=== PATIENT | female | born 1995 | race Caucasian/White ===

== ENCOUNTER 2019-05-21 23:59 | Emergency (ER) | payer OTHER ==
[2019-05-22 00:12] VITALS: BP 135/97; PULSE 98; TEMP 98.2; BMI 24.4
--- NOTE | 2019-05-22 01:22 | PDOC ---
Documentation entered by Russell Gimenez SCRIBE, acting as scribe for Yolande Jain MD. Yolande Jain MD: This documentation has been prepared by the sangibePernell Daniel, SCRIBE, under my direction and personally reviewed by me in its entirety. I confirm that the documentation accurately reflects all work, treatment, procedures, and medical decision making performed by me. History of Present Illness - General Chief Complaint: Vaginal Bleeding Stated Complaint: VAGINAL BLEEDING Time Seen by Provider: 05/22/19 01:02 History Source: Patient Exam Limitations: No Limitations - History of Present Illness Initial Comments: 05/22/19 01:13 The patient is a 24 year old female with no past medical history here today for evaluation of vaginal bleeding. The patient reports that she is 9 weeks (LMP: 02/25/19) and noticed some vaginal bleeding today about 1 hour prior to arrival. Patient denies any other symptoms at this time. Patient notes seeing her OB last week. Patient denies headache, lightheadedness. Denies fever, chills. Denies chest pain, shortness of breath. Denies nausea, vomiting, diarrhea, abdominal pain. Surgical history: none OB: [facility] Past History - Past Medical History Home Medications: Ambulatory Orders NK [No Known Home Medication] 05/22/19 COPD: No - Psycho Social/Smoking Cessation Hx Smoking History: Never smoked Have you smoked in the past 12 months: No Information on smoking cessation initiated: No Hx Alcohol Use: No Drug/Substance Use Hx: No Review of Systems - Review of Systems Able to Perform ROS?: Yes Comments:: 05/22/19 01:13 CONSTITUTIONAL: Absent: fever, chills, diaphoresis, generalized weakness, malaise, loss of appetite HEENT: Absent: rhinorrhea, nasal congestion, throat pain, throat swelling, difficulty swallowing, mouth swelling, ear pain, eye pain, visual Changes CARDIOVASCULAR: Absent: chest pain, syncope, palpitations, irregular heart rate, lightheadedness , peripheral edema RESPIRATORY: Absent: cough, shortness of breath, dyspnea with exertion, orthopnea, wheezing, stridor, hemoptysis GASTROINTESTINAL: Absent: abdominal pain, abdominal distension, nausea, vomiting, diarrhea, constipation, melena, hematochezia GENITOURINARY: +vaginal bleeding. Absent: dysuria, frequency, urgency, hesitancy, hematuria, flank pain, genital pain MUSCULOSKELETAL: Absent: myalgia, arthralgia, joint swelling SKIN: Absent: rash, itching, pallor HEMATOLOGIC/IMMUNOLOGIC: Absent: easy bleeding, easy bruising, lymphadenopathy, frequent infections ENDOCRINE: Absent: unexplained weight gain, unexplained weight loss, heat intolerance, cold intolerance NEUROLOGIC: Absent: headache, focal weakness or paresthesias, dizziness, unsteady gait, seizure, mental status changes, bladder or bowel incontinence PSYCHIATRIC: Absent: anxiety, depression, suicidal or homicidal ideation, hallucinations. *Physical Exam - Vital Signs Last Vital Signs Temp Pulse Resp BP Pulse Ox 98.2 F 98 H 19 135/97 100 05/22/19 00:06 05/22/19 00:06 05/22/19 00:06 05/22/19 00:06 05/22/19 00:06 - Physical Exam 05/22/19 01:13 GENERAL: Well developed, well nourished. Awake and alert. No acute distress. HEENT: Normocephalic, atraumatic. PERRLA, EOMI. No conjunctival pallor. Sclera are non- icteric. Moist mucous membranes. Oropharynx is clear. NECK: Supple. Full ROM. No JVD. Carotid pulses 2+ and symmetric, without bruits. No thyromegaly. No lymphadenopathy. CARDIOVASCULAR: Regular rate and rhythm. No murmurs, rubs, or gallops. Distal pulses are 2+ and symmetric. PULMONARY: No evidence of respiratory distress. Lungs clear to auscultation bilaterally. No wheezing, rales or rhonchi. ABDOMINAL: Soft. Non-tender. Non-distended. No rebound or guarding. No organomegaly. Normoactive bowel sounds. MUSCULOSKELETAL Normal range of motion at all joints. No bony deformities or tenderness. No CVA tenderness. EXTREMITIES: No cyanosis. No clubbing. No edema. No calf tenderness. SKIN: Warm and dry. Normal capillary refill. No rashes. No jaundice. NEUROLOGICAL: Alert, awake, appropriate. Cranial nerves 2-12 intact. No deficits to light touch and temperature in face, upper extremities and lower extremities. No motor deficits in the face, upper extremities and lower extremities. Normoreflexic in the upper and lower extremities. Normal speech. Toes are down- going bilaterally. Gait is normal without ataxia. PSYCHIATRIC: Cooperative. Good eye contact. Appropriate mood and affect. ED Treatment Course - LABORATORY CBC & Chemistry Diagram: 05/22/19 01:51 Medical Decision Making - Medical Decision Making 05/22/19 01:21 imp threatened ab/early bhcg,type and screen, US 05/22/19 01:41 05/22/19 01:55 Ultrasound shows a live IUP estimated age 10 weeks 5 days without definite abnormalities, heart tones 169 bpm, no subchorionic bleed there is no sign of torsion good flow to both ovaries impression threatened AB patient follow-up with her INSET CUTTER 05/22/19 02:45 RH positive Discharge - Discharge Information Problems reviewed: Yes Clinical Impression/Diagnosis: Threatened Condition: Stable Disposition: HOME - Admission No - Follow up/Referral - Patient Discharge Instructions Patient Printed Discharge Instructions: DI for Threatened Additional Instructions: please follow up with your cylinder machine operator pulp drier - Post Discharge Activity
[2019-05-22 01:58] LABS: BASO % 0.6 % (0-2.0); EOS % 2.5 % (0-4.5); HEMATOCRIT 36.5 % (32.4-45.2); HEMOGLOBIN 12.7 GM/dL (10.7-15.3); LYMPH % 32.3 % (8-40); MCH 31.8 pg (25.7-33.7); MCHC 34.8 g/dl (32.0-36.0); MEAN CELL VOLUME 91.4 fl (80-96); MEAN PLT VOLUME 6.8 fl (7.5-11.1); NEUT % 58.6 % (42.8-82.8); PLATELET COUNT 360 K/MM3 (134-434); RBC 3.99 M/mm3 (3.60-5.2); RDW 12.8 % (11.6-15.6); WHITE BLOOD COUNT 10.3 K/mm3 (4.0-10.0)
== END 2019-05-22 02:55 | disposition home or self-care (01) ==
LOC: JER 23:59
DX: O26.891 Other specified pregnancy related conditions, first trimester (principal); O20.0 Threatened abortion; Z3A.10 10 weeks gestation of pregnancy
CPT/HCPCS: 36415; 76801-TC; 84702; 85025; 86850; 86900; 86901; 99282-25

== ENCOUNTER 2019-07-30 22:25 | Emergency (ER) | payer OTHER ==
[2019-07-30 22:43] VITALS: BMI 25.5
--- NOTE | 2019-07-30 23:44 | PDOC ---
History of Present Illness - General Chief Complaint: Pain Stated Complaint: ABD PAIN Time Seen by Provider: 07/30/19 23:36 History Source: Patient Exam Limitations: No Limitations - History of Present Illness Initial Comments: 07/30/19 23:36 Patient is a 24 year old female with no pmhx who is 20 weeks c/o abdominal pain x1 week. States that the pain started in the epigastrium and right upper quadrant now radiates to the right lower quadrant. Patient was seen in OB for her pain baby was evaluated and then sent to the emergency room for further evaluation. Pain is a throbbing in the epigastrium and left lower quadrant 8/10, no aggravating or alleviating factors. Did not take any medicines for the pain. Denies any nausea, vomiting, fever, chills, pain on uri nation. PMD: Dr. Cutler PMHX: as above PSOCHX: neg etoh, drug, cig ALL: NKDA GENERAL/CONSTITUTIONAL: [No fever or chills. No weakness. No weight change.] HEAD, EYES, EARS, NOSE AND THROAT: [No change in vision. No ear pain or discharge. No sore throat.] CARDIOVASCULAR: [No chest pain or shortness of breath.] RESPIRATORY: [No cough, wheezing, or hemoptysis.] GASTROINTESTINAL: [No nausea, vomiting, diarrhea or constipation. No rectal bleeding.] GENITOURINARY: [No dysuria, frequency, or change in urination.] MUSCULOSKELETAL: [No joint or muscle swelling or pain. No neck or back pain.] SKIN AND BREASTS: [No rash or easy bruising.] NEUROLOGIC: [No headache, vertigo, loss of consciousness, or loss of sensation.] PSYCHIATRIC: [No depression or anxiety.] ENDOCRINE: [No increased thirst. No abnormal weight change.] HEMATOLOGIC/LYMPHATIC: [No anemia, easy bleeding, or history of blood clots.] ALLERGIC/IMMUNOLOGIC: [No hives or skin allergy. No latex allergy.] GENERAL: [The patient is awake, alert, and fully oriented, in no acute distress.] HEAD: [Normal with no signs of trauma.] EYES: [Pupils equal, round and reactive to light, extraocular movements intact, sclera anicteric, conjunctiva clear.] ENT: [Ears normal, nares patent, oropharynx clear without exudates. Moist mucous membranes.] NECK: [Normal range of motion, supple without lymphadenopathy, JVD, or masses.] LUNGS: [Breath sounds equal, clear to auscultation bilaterally. No wheezes, and no crackles.] HEART: [Regular rate and rhythm, normal S1 and S2 without murmur, rub.] ABDOMEN: [Soft, (+) tenderness RUQ, epigastrum, and LLQ, normoactive bowel sounds. No guarding, no rebound. No masses.] EXTREMITIES: [Normal range of motion, no edema. No clubbing or cyanosis. No cords, erythema, or tenderness.] NEUROLOGICAL: [Cranial nerves II through XII grossly intact. Normal speech, normal gait.] PSYCH: [Normal mood, normal affect.] SKIN: [Warm, Dry, normal turgor, no rashes or lesions noted.] Past History - Past Medical History Allergies/Adverse Reactions: Allergies Allergy/AdvReac Type Severity Reaction Status Date / Time No Known Allergies Allergy Verified 07/30/19 22:41 Home Medications: Ambulatory Orders Nitrofurantoin Monohyd/M-Cryst [Macrobid -] 100 mg PO BID #14 capsule 11/08/18 NK [No Known Home Medication] 05/22/19 COPD: No - Reproductive History (#): 1 Para: 0 Cervical CA: No Dysfunctional Uterine Bleeding: No Ectopic : No Endometrial CA: No Polycystic Ovaries: No Therapeutic (s) & number: No Tubal Ligation: No - Immunization History Immunization Up to Date: Yes - Psycho Social/Smoking Cessation Hx Smoking History: Never smoked Have you smoked in the past 12 months: No Hx Alcohol Use: No Drug/Substance Use Hx: No *Physical Exam - Vital Signs Last Vital Signs Temp Pulse Resp BP Pulse Ox 97.8 F 82 20 119/75 100 07/30/19 22:41 07/30/19 22:41 07/30/19 22:41 07/30/19 22:41 07/30/19 22:41 ED Treatment Course - LABORATORY CBC & Chemistry Diagram: 07/31/19 00:05 07/31/19 00:05 Medical Decision Making - Medical Decision Making 07/30/19 23:36 Patient is a 24 year old female with no pmhx who is 20 weeks c/o abdominal pain x1 week. States that the pain started in the epigastrium and right upper quadrant now radiates to the right lower quadrant. Patient was seen in OB for her pain baby was evaluated and then sent to the emergency room for further evaluation. Pain is a throbbing in the epigastrium and left lower quadrant 8/10, no aggravating or alleviating factors. Did not take any medicines for the pain. Denies any nausea, vomiting, fever, chills, pain on urination. labs US GB, UA IVF, tylenol reassess Labs reviewed noted slightly elevated liver enzymes. 07/31/19 01:51 Patient states she feels slightly improved we will continue her treatment with Pepcid 20 mg IV. Ultrasound gallbladder still pending. Endorsed to the night team pending results of ultrasound, repeat exam and disposition Discharge - Discharge Information Problems reviewed: Yes Clinical Impression/Diagnosis: Abdominal pain affecting Condition: Stable - Follow up/Referral - Patient Discharge Instructions - Post Discharge Activity
[2019-07-30] MEDS ORDERED: SODIUM CHLORIDE 0.9% 500 ML INFUS.BAG IV ONE (23:55)
[2019-07-30] MEDS ORDERED: ACETAMINOPHEN 500 MG TABLET (FP) PO ONE (23:55)
[2019-07-31] MEDS ORDERED: ACETAMINOPHEN 325 MG TABLET (FP) ONE (00:14)
[2019-07-31 00:21] LABS: BASO % 0.3 % (0-2.0); EOS % 2.7 % (0-4.5); HEMATOCRIT 34.6 % (32.4-45.2); HEMOGLOBIN 12.1 GM/dL (10.7-15.3); MCH 31.5 pg (25.7-33.7); MEAN CELL VOLUME 89.9 fl (80-96); MEAN PLT VOLUME 7.9 fl (7.5-11.1); PLATELET COUNT 356 K/MM3 (134-434); RBC 3.85 M/mm3 (3.60-5.2); RDW 13.1 % (11.6-15.6); WHITE BLOOD COUNT 10.9 K/mm3 (4.0-10.0)
[2019-07-31 00:22] LABS: URINE APPEARANCE CLEAR; URINE BILIRUBIN NEGATIVE (NEGATIVE); URINE COLOR YELLOW; URINE GLUCOSE (UA) NEGATIVE (NEGATIVE); URINE KETONE NEGATIVE (NEGATIVE); URINE LEUK ESTERASE NEGATIVE (NEGATIVE); URINE NITRITE NEGATIVE (NEGATIVE); URINE PROTEIN NEGATIVE (NEGATIVE); URINE UROBILINOGEN 0.2 mg/dL (0.2-1.0)
[2019-07-31 00:45] LABS: ALBUMIN 3.2 g/dl (3.4-5.0); BILIRUBIN,TOTAL 0.2 mg/dL (0.2-1); BLOOD UREA NITROGEN 4.7 mg/dL (7-18); CALCIUM 8.6 mg/dL (8.5-10.1); CREATININE 0.5 mg/dL (0.55-1.3); POTASSIUM 3.7 mmol/L (3.5-5.1)
[2019-07-31] MEDS ORDERED: FAMOTIDINE 20 MG/50 ML IVPB 20 MG/50 ML MG IVPB ONE ×2 (01:19→01:57)
[2019-07-31] MEDS ORDERED: SODIUM CHLORIDE 0.9% 500 ML INFUS.BAG IV ONE (01:52)
--- NOTE | 2019-07-31 02:33 | PDOC ---
*Physical Exam - Vital Signs Last Vital Signs Temp Pulse Resp BP Pulse Ox 97.8 F 82 20 119/75 100 07/30/19 22:41 07/30/19 22:41 07/30/19 22:41 07/30/19 22:41 07/30/19 22:41 ED Treatment Course - LABORATORY CBC & Chemistry Diagram: 07/31/19 00:05 07/31/19 00:05 - ADDITIONAL ORDERS Additional order review: Laboratory Results 07/31/19 07/31/19 00:05 00:05 Sodium 138 Potassium 3.7 Chloride 108 H Carbon Dioxide 21 Anion Gap 9 BUN 4.7 L Creatinine 0.5 L Est GFR (CKD-EPI)AfAm 154.81 Est GFR (CKD-EPI)NonAf 133.57 Random Glucose 71 L Calcium 8.6 Total Bilirubin 0.2 AST 43 H ALT 74 H Alkaline Phosphatase 69 Total Protein 7.0 Albumin 3.2 L Urine Color Yellow Urine Appearance Clear Urine pH 5.0 Ur Specific [place] 1.024 Urine Protein Negative Urine Glucose (UA) Negative Urine Ketones Negative Urine Blood Negative Urine Nitrite Negative Urine Bilirubin Negative Urine Urobilinogen 0.2 Ur Leukocyte Esterase Negative 07/31/19 00:05 RBC 3.85 MCV 89.9 MCHC 35.0 RDW 13.1 MPV 7.9 D Neutrophils % 59.0 Lymphocytes % 31.0 Monocytes % 7.0 Eosinophils % 2.7 Basophils % 0.3 - Medications Given in the ED: ED Medications Discontinued Medications Generic Name Dose Route Start Last Admin Trade Name Freq PRN Reason Stop Dose Admin Acetaminophen 975 mg 07/30/19 23:55 07/31/19 00:28 Tylenol - PO 07/30/19 23:56 975 mg ONCE ONE Administration Famotidine/Sodium Chloride 20 mg in 50 mls @ 100 mls/hr 07/31/19 01:19 07/31/19 02:04 Pepcid 20 Mg Premixed Ivpb - IVPB 07/31/19 01:48 100 mls/hr ONCE ONE Administration Sodium Chloride 1,000 ml 07/30/19 23:55 07/31/19 00:28 Normal Saline - IV 07/30/19 23:56 1,000 ml ONCE ONE Administration Sodium Chloride 1,000 ml 07/31/19 01:52 07/31/19 02:04 Normal Saline - IV 07/31/19 01:53 1,000 ml ONCE ONE Administration Medical Decision Making - Medical Decision Making 07/31/19 02:33 Signout taken from MICHAEL Walsh. Patient is a 24 yo female at 20 weeks gestation presenting for evaluation of 1 week history of abdominal pain. Patient checked out by OB already and sent to ER for evaluation. Patient well appearing and awaiting US read for dispo. 07/31/19 02:45 US negative. Patient reporting improvement of symptoms. No concern for acute process at this time. Discharging to home. Discharge - Discharge Information Problems reviewed: Yes Clinical Impression/Diagnosis: Abdominal pain affecting Condition: Stable Disposition: HOME - Follow up/Referral - Patient Discharge Instructions Patient Printed Discharge Instructions: DI for Abdominal Pain-Adult Additional Instructions: You were evaluated today in the ER for your abdominal pain. We performed ultrasound as well as labs which were all normal. Please follow-up with WORK ORDER SORTING CLERK as needed for further evaluation. You may take over the counter tylenol per package instructions for pain control. Return to ER if any fever, chills, increase in pain, or other concerning symptoms. - Post Discharge Activity Work/Back to School Note: Back to Work
[2019-07-31 02:55] VITALS: BP 112/56; PULSE 88; TEMP 97.6
== END 2019-07-31 02:52 | disposition home or self-care (01) ==
LOC: JER 22:25
PROC: 3E033GC Introduction of Other Therapeutic Substance into Peripheral Vein, Percutaneous Approach (ICD-10-PCS; principal; 2019-07-30)
DX: O26.892 Other specified pregnancy related conditions, second trimester (principal); R10.84 Generalized abdominal pain; Z3A.20 20 weeks gestation of pregnancy
CPT/HCPCS: 36415; 76705-TC; 80053; 81003; 85025; 87086; 96365; 99285-25